=== PATIENT | male | born 2000 | race Two or more races ===

== ENCOUNTER 2022-06-29 17:04 | Emergency (ER) | payer OTHER ==
[2022-06-29 17:16] VITALS: BP 123/70
--- OUTSIDE RECORDS SUMMARY | 2022-06-29 17:24 | EXTERNAL MEDICAL SUMMARY RPT | Continuity of Care Document ---
:2000 Author Organization [facility] Address [address] [place] [address] Phone Care Team Providers Name Role Phone Unavailable Unavailable Unavailable Janak Casillas Pa-C Unavailable Unavailable Allergies No information. Encounters No information. Functional Status No information. Immunizations No information. Medications No information. Problems date description facility 2022-05-28 00:00 Unspecified viral infection All 2022-05-28 00:00 Viral disease All 2022-05-28 00:00 Viral infection, unspecified All Procedures date description facility 2022-05-28 00:00 Visit Code Hold All Results/Labs No information. Social History date description facility 2022-05-28 00:00 Unknown if ever smoked All 2022-05-29 00:00 Unknown if ever smoked All Vital Signs date measurement value units 2022-05-28 00:00 BMI 21.84 kg/m2 2022-05-28 00:00 BP_diastolic 66 mmHg 2022-05-28 00:00 BP_systolic 110 mmHg 2022-05-28 00:00 heart_rate 64 /min 2022-05-28 00:00 height_metric 180.34 cm 2022-05-28 00:00 height_standard 71 in 2022-05-28 00:00 respiration_rate 16 /min 2022-05-28 00:00 temperature_metric 36.17 C 2022-05-28 00:00 temperature_standard 97.1 F 2022-05-28 00:00 weight_metric 70.76 kg 2022-05-28 00:00 weight_standard 156 lb
--- NOTE | 2022-06-29 17:44 | ED Physician Documentation ---
PD HPI HEAD INJURY - Stated complaint Stated Complaint: HEAD LAC - Chief complaint Chief Complaint: Laceration - History obtained from History obtained from: Patient - Additional information Additional information: He scraped his forehead a few hours ago. He is up-to-date on tetanus. It was still bleeding. No head injury otherwise per se. No loss of consciousness or headache. PD PAST MEDICAL HISTORY - Past Surgical History Past Surgical History: No - Present Medications Home Medications: Ambulatory Orders Medication Instructions Recorded Confirmed Oxycodone HCl/Acetaminophen 1 - 2 each PO Q6H PRN #20 tablet 11/22/21 [Percocet 5-325 mg Tablet] Silver Sulfadiazine Cream 1 applic TOP BID #25 gm 11/22/21 [Silvadene Cream] - Allergies Allergies/Adverse Reactions: Allergies Allergy/AdvReac Type Severity Reaction Status Date / Time No Known Drug Allergies Allergy Verified 06/29/22 17:16 - Social History Does the pt smoke?: No Smoking Status: Never smoker Does the pt drink ETOH?: No Does the pt have substance abuse?: No - Immunizations Immunizations are current?: Yes - POLST Patient has POLST: No PD ED PE NORMAL - Vitals Vital signs reviewed: Yes - General General: Alert and oriented X 3, No acute distress - HEENT HEENT: PERRL, EOMI, Other (There is a 1 cm vertical very shallow laceration just above the medial side of the right eyebrow.) - Neuro Neuro: Alert and oriented X 3 Eye Opening: Spontaneous Motor: Obeys Commands Verbal: Oriented GCS Score: 15 Results - Vitals Vitals: Vital Signs - 24 hr 06/29/22 17:11 Temperature 36.6 C Heart Rate 75 Respiratory 18 Rate Blood Pressure 123/70 O2 Saturation 98 Oxygen O2 Source Room air Procedures - Laceration (location) Face Length in cm: 1 Wound type: Linear, Superficial Wound preparation: Irrigated copiously NS Skin layer closure: Dermabond Other: Tetanus UTD Departure - Departure Disposition: 01 Home, Self Care Clinical Impression: Facial laceration Condition: Good Record reviewed to determine appropriate education?: Yes Instructions: ED Laceration Facial Skin Glue
== END 2022-06-29 17:50 | disposition home or self-care (01) ==
LOC: ED 17:04
DX: S01.111A Laceration without foreign body of right eyelid and periocular area, initial encounter (principal); X58.XXXA Exposure to other specified factors, initial encounter
CPT/HCPCS: 12011; 99281

== ENCOUNTER 2022-08-08 20:44 | Emergency (ER) | payer OTHER ==
--- OUTSIDE RECORDS SUMMARY | 2022-08-08 21:42 | EXTERNAL MEDICAL SUMMARY RPT | Continuity of Care Document ---
:2000 Author Organization [facility] Address [address] [place] [address] Phone Care Team Providers Name Role Phone [...]
[2022-08-08 22:05] LABS: B. PARAPERTUSSIS- RESP PCR PAN NOT DETECTED; B. PERTUSSIS- RESP PCR PANEL NOT DETECTED; C. PNEUMONIAE- RESP PCR PANEL NOT DETECTED; CORONAVIRUS 229E-RESP PCR NOT DETECTED; CORONAVIRUS HKU1-RESP PCR NOT DETECTED; CORONAVIRUS NL63-RESP PCR NOT DETECTED; CORONAVIRUS OC43-RESP PCR NOT DETECTED; HUMAN METAPNEUMOVIRUS NOT DETECTED; INFLUENZA A- RESP PCR PANEL NOT DETECTED; INFLUENZA B - RESP PCR PANEL NOT DETECTED; M. PNEUMONIAE- RESP PCR PANEL NOT DETECTED; PARAINFLUENZA VIRUS 1 NOT DETECTED; PARAINFLUENZA VIRUS 2 NOT DETECTED; PARAINFLUENZA VIRUS 3 NOT DETECTED; PARAINFLUENZA VIRUS 4 NOT DETECTED; RHINOVIRUS/ENTEROVIRUS NOT DETECTED; RSV- RESP PCR PANEL NOT DETECTED; SARS-CoV-2 -RESP PCR PANEL DETECTED
--- NOTE | 2022-08-08 22:25 | ED Physician Documentation ---
History of Present Illness - Stated complaint Stated Complaint: FEVER/CERDA/BODY ACHES - Chief complaint Chief Complaint: Heent - History obtained from History obtained from: Patient - Additonal information Additional information: HPI from patient. Patient c/o generalized CERDA, nonproductive cough, generalized myalgias, mild dyspnea. Symptoms began 5-6 days ago, was evaluated at a walk-in clinic 3 days a go, had COVID test with negative result, and was prescribed 2 days of PO steroids which patient completed. He felt improvement until last night when symptoms worsened along with development of fevers and chills. Tmax at home was 104 , earlier this evening. Review of Systems Constitutional: reports: Fever, Chills, Myalgias, Fatigue Ears: denies: Ear pain Throat: denies: Sore throat Cardiac: denies: Chest pain / pressure Respiratory: reports: Dyspnea, Cough PD PAST MEDICAL HISTORY - Past Medical History Past Medical History: Yes Cardiovascular: None Respiratory: None Neuro: None Endocrine/Autoimmune: None GI: None : None HEENT: None Psych: ADD/ADHD Musculoskeletal: None Derm: None - Past Surgical History Past Surgical History: No - Present Medications Home Medications: Ambulatory Orders Medication Instructions Recorded Confirmed Methylphenidate HCl [Concerta] 36 mg PO DAILY 06/29/22 06/29/22 - Allergies Allergies/Adverse Reactions: Allergies Allergy/AdvReac Type Severity Reaction Status Date / Time No Known Drug Allergies Allergy Verified 08/08/22 20:58 - Social History Does the pt smoke?: No Smoking Status: Never smoker Does the pt drink ETOH?: No Does the pt have substance abuse?: No - Immunizations Immunizations are current?: Yes - POLST Patient has POLST: No PD ED PE NORMAL - Vitals Vital signs reviewed: Yes - General General: Alert and oriented X 3, No acute distress, Well developed/nourished - HEENT HEENT: Ears normal - Neck Neck: Supple, no meningeal sign - Respiratory Respiratory: No respiratory distress, Clear bilaterally Results - Vitals Vitals: Oxygen O2 Source Room air - Labs Labs: Laboratory Tests 08/08/22 21:00 Nasal Adenovirus (PCR) NOT DETECTED Nasal B. parapertussis DNA (PCR) NOT DETECTED Nasal Coronavir 229E PCR NOT DETECTED Nasal Coronavir HKU1 PCR NOT DETECTED Nasal Coronavir NL63 PCR NOT DETECTED Nasal Coronavir OC43 PCR NOT DETECTED Nasal Enterovir/Rhinovir PCR NOT DETECTED Nasal Influenza B PCR NOT DETECTED Nasal Influenza A PCR NOT DETECTED Nasal Parainfluen 1 PCR NOT DETECTED Nasal Parainfluen 2 PCR NOT DETECTED Nasal Parainfluen 3 PCR NOT DETECTED Nasal Parainfluen 4 PCR NOT DETECTED Nasal RSV (PCR) NOT DETECTED Nasal B.pertussis DNA PCR NOT DETECTED Nasal C.pneumoniae (PCR) NOT DETECTED Mela Human Metapneumo PCR NOT DETECTED Nasal M.pneumoniae (PCR) NOT DETECTED Nasal SARS-CoV-2 (PCR) DETECTED A PD Medical Decision Making - ED course Complexity details: reviewed results, considered differential, d/w patient ED course: Respiratory PCR panel is positive for COVID-19. Lungs are CTA, pulse ox 97-99% on room air , NAD on exam. Results d/w patient, return precautions reviewed. Per CDC guidelines, patient's ADD/ADHD diagnosis is a risk factor for progression to severe disease and thus he is provided Paxlovid kit. Departure - Departure Disposition: 01 Home, Self Care Clinical Impression: COVID-19 Condition: Good Instructions: ED Viral Syndrome Follow-Up: MELA Younger [Provider Group] Comments: You tested positive for COVID tonight. This would account for your fever and the symptoms you are describing. You have been provided with antiviral medication (Paxlovid); follow the instructions accompanying this kit regarding how to take this medication. Google "CDC isolation" and then click on the link to "Isolation and Precautions for People with COVID-19 - CDC". This will have useful information for you as well as household contacts. There is a calculator on the page that will determine when you can end isolation. Forms: Activity restrictions Discharge Date/Time: 08/08/22 22:58
[2022-08-08] MEDS ORDERED: NIRMATRELVIR/RITONAVIR PREPACK PO STA (22:49)
[2022-08-08 22:58] VITALS: BP 122/64
== END 2022-08-08 22:58 | disposition home or self-care (01) ==
LOC: ED 20:44
DX: U07.1 COVID-19 (principal); F90.9 Attention-deficit hyperactivity disorder, unspecified type
CPT/HCPCS: 87633; 99283; J3490

== ENCOUNTER 2022-12-18 11:07 | Emergency (ER) | payer OTHER ==
[2022-12-18 11:35] LABS: MUDS CUTOFF CONCENTRATIONS CUTOFF CONC BELOW:
[2022-12-18 11:48] LABS: AMPHETAMINE SCREEN,URINE NEGATIVE (NEGATIVE); BARBITURATE SCREEN,UR NEGATIVE (NEGATIVE); BENZODIAZEPINES SCREEN, URINE NEGATIVE (NEGATIVE); COCAINE SCREEN URINE NEGATIVE (NEGATIVE); METHADONE SCREEN, URINE NEGATIVE (NEGATIVE); METHAMPHETAMINES SCREEN, URINE NEGATIVE (NEGATIVE); OPIATE SCREEN, URINE NEGATIVE (NEGATIVE); OXYCODONE SCREEN, URINE NEGATIVE (NEGATIVE); PROPOXYPHENE SCREEN, URINE NEGATIVE (NEGATIVE); THC CANNABINOID SCREEN, URINE NEGATIVE (NEGATIVE); TRICYCLIC ANTIDEPRESSANT,URINE NEGATIVE (NEGATIVE)
[2022-12-18 11:58] LABS: BASOPHILS % (AUTO) 0.7 %; EOSINOPHILS # (AUTO) 0.2 10^3/uL (0.0-0.7); EOSINOPHILS % (AUTO) 2.7 %; HCT - HEMATOCRIT 41.5 % (42.0-52.0); HGB - HEMOGLOBIN 14.1 g/dL (14.0-18.0); LYMPHOCYTES # (AUTO) 1.1 10^3/uL (1.5-3.5); MEAN CORPUSCULAR HEMOGLOBIN 29.6 pg (27.0-31.0); MEAN CORPUSCULAR VOLUME 87.2 fL (80.0-94.0); MEAN PLATELET VOLUME 10.9 fL (7.4-11.4); MONOCYTES # (AUTO) 0.4 10^3/uL (0.0-1.0); MONOCYTES % (AUTO) 6.7 %; NEUTROPHILS # (AUTO) 3.9 10^3/uL (1.5-6.6); NEUTROPHILS % (AUTO) 70.7 %; PLT - PLATELET COUNT 240 10^3/uL (130-450); RED BLOOD COUNT 4.76 10^6/uL (4.70-6.10); RED CELL DISTRIBUTION WIDTH 12.2 % (12.0-15.0); WHITE BLOOD COUNT 5.5 x10^3/uL (4.8-10.8)
[2022-12-18 12:15] LABS: ALBUMIN 4.4 g/dL (3.2-5.5); ALKALINE PHOSPHATASE 59 IU/L (42-121); ALT ALANINE AMINOTRANSFERASE 37 IU/L (10-60); AST ASPARTATE AMINOTRANSFERASE 23 IU/L (10-42); BILIRUBIN,TOTAL 0.9 mg/dL (0.2-1.0); BUN - BLOOD UREA NITROGEN 14 mg/dL (6-20); CALCIUM 9.9 mg/dL (8.5-10.3); CARBON DIOXIDE - CO2 29 mmol/L (21-32); CHLORIDE 104 mmol/L (101-111); CREATININE 0.8 mg/dL (0.6-1.3); ETOH - ETHANOL < 10.0 mg/dL; GFR - MDRD 120 (>89); GLUCOSE 86 mg/dL (74-104); LIPASE 10 U/L (11-82); POTASSIUM 3.8 mmol/L (3.5-4.5); SODIUM 137 mmol/L (135-145); TOTAL PROTEIN 6.6 g/dL (6.4-8.9)
--- NOTE | 2022-12-18 14:34 | ED Physician Documentation ---
PD HPI MHE - Stated complaint Stated Complaint: SI - Chief complaint Chief Complaint: MHE - History obtained from History obtained from: Patient, EMS - Additional information Additional information: The patient comes to the emergency department chief complaint of suicidal ideation. He has a longstanding history of depression with multiple suicide attempts and regular alcohol abuse. He states that he has been having some domestic tensions over the last month which have increased his normal feeling of suicidality. He states that today, he was trying to find his card so he could drive to a secluded place and take all of his medications, but his saw what he was doing and called 911. Before the patient could leave, EMS and the police showed up. The patient was initially involuntary but ultimately agreed to come to the hospital voluntarily if he could come without being in handcuffs. Medics report he has been cooperative since. The patient states he has previously been on antidepressants but states he used them to try to overdose and did not think they helped him. [place] that he also was doing a daily Zoom Intensive outpatient therapy appointment, but states he just stopped doing it. He states he did feel it was helpful and he is not sure why he stopped doing it because he did want to complete the therapy, but he just could not bring himself to pay attention every day. The patient's primary doctor reports that the patient has multiple court appointments pending, secondary to aggressive behavior toward others and a desire to discharge from the . He states that this seems to been causing patient stress recently as well. The patient denies any physical symptoms. He denies actually taking any medication today or doing anything else to harm himself. He states that he does not really have any specific factors that stop him from committing suicide when he does decide not to try to kill himselfhe just decides not to for unknown reasons. The patient states his last drink was 2 days ago. He denies any tremors, vomiting, or hallucinations. He does not use any other drugs, he states. PD PAST MEDICAL HISTORY - Past Medical History Cardiovascular: None Respiratory: None Neuro: None Endocrine/Autoimmune: None GI: None : None HEENT: None Psych: ADD/ADHD Musculoskeletal: None Derm: None - Past Surgical History Past Surgical History: No - Present Medications Home Medications: Ambulatory Orders Medication Instructions Recorded Confirmed Methylphenidate HCl [Concerta] 36 mg PO DAILY 06/29/22 12/18/22 - Allergies Allergies/Adverse Reactions: Allergies Allergy/AdvReac Type Severity Reaction Status Date / Time No Known Drug Allergies Allergy Verified 08/08/22 20:58 - Social History Does the pt smoke?: No Smoking Status: Never smoker Does the pt drink ETOH?: No Does the pt have substance abuse?: No - Immunizations Immunizations are current?: Yes - POLST Patient has POLST: No PD ED PE NORMAL - Vitals Vital signs reviewed: Yes - General General: Alert and oriented X 3, No acute distress, Well developed/nourished - HEENT HEENT: Atraumatic, PERRL, EOMI, Moist mucous membranes - Neck Neck: Supple, no meningeal sign - Cardiac Cardiac: RRR, No murmur - Respiratory Respiratory: No respiratory distress, Clear bilaterally - Abdomen Abdomen: Soft, Non tender, Non distended - Derm Derm: Normal color, Warm and dry, No rash - Extremities Extremities: No deformity - Neuro Neuro: Alert and oriented X 3, ice guard inspector 2-12 intact, Normal speech - Psych Psych: Other (Somewhat flat affect. Patient does not make eye contact but does answer questions. He seems apathetic.) Results - Vitals Vitals: Vital Signs - 24 hr 12/18/22 11:28 Temperature 36.5 C Heart Rate 70 Respiratory 16 Rate Blood Pressure 119/70 O2 Saturation 99 Oxygen O2 Source Room air - Labs Labs: Laboratory Tests 12/18/22 12/18/22 12/18/22 11:22 11:29 11:29 WBC 5.5 RBC 4.76 Hgb 14.1 Hct 41.5 L MCV 87.2 MCH 29.6 MCHC 34.0 RDW 12.2 Plt Count 240 MPV 10.9 Neut # (Auto) 3.9 Lymph # (Auto) 1.1 L [place]cho # (Auto) 0.4 Eos # (Auto) 0.2 Baso # (Auto) 0.0 Absolute Nucleated RBC 0.00 Nucleated RBC % 0.0 Sodium 137 Potassium 3.8 Chloride 104 Carbon Dioxide 29 Anion Gap 4.0 L BUN 14 Creatinine 0.8 Estimated GFR (MDRD) 120 Glucose 86 Calcium 9.9 Total Bilirubin 0.9 AST 23 ALT 37 Alkaline Phosphatase 59 Total Protein 6.6 Albumin 4.4 Globulin 2.2 Albumin/Globulin Ratio 2.0 Lipase 10 L Urine Opiates Screen NEGATIVE Ur Oxycodone Screen NEGATIVE Urine Methadone Screen NEGATIVE Ur Propoxyphene Screen NEGATIVE Ur Barbiturates Screen NEGATIVE Ur Tricyclics Screen NEGATIVE Ur Phencyclidine Scrn NEGATIVE Ur Amphetamine Screen NEGATIVE U Methamphetamines Scrn NEGATIVE U Benzodiazepines Scrn NEGATIVE Urine Cocaine Screen NEGATIVE U Cannabinoids Screen NEGATIVE Ethyl Alcohol < 10.0 PD Medical Decision Making - ED course Complexity details: reviewed results, re-evaluated patient, considered differential, d/w patient ED course: The patient was medically cleared at 1330 and social work did evaluate. The likely plan will be for this patient to have inpatient treatment, hopefully at [facility]. The patient will be signed out to the [facility] emergency physician, pending final disposition. Departure - Departure Clinical Impression: Suicidal ideation Depression Qualifiers: Depression Type: unspecified Qualified Code(s): F32.A - Depression, unspecified Condition: Stable
[2022-12-18 17:53] LABS: BILIRUBIN,URINE NEGATIVE (NEGATIVE); GLUCOSE, URINE (UA) NEGATIVE (NEGATIVE); KETONES,URINE (UA) NEGATIVE (NEGATIVE); LEUKOCYTE ESTERASE, URINE NEGATIVE (NEGATIVE); NITRITE,URINE NEGATIVE (NEGATIVE); OCCULT BLOOD,URINE NEGATIVE (NEGATIVE); PROTEIN,URINE NEGATIVE (NEGATIVE); UROBILINOGEN,URINE 0.2 (NORMAL) E.U./dL (NORMAL)
[2022-12-18 17:56] LABS: CLARITY,URINE CLEAR (CLEAR)
[2022-12-18 19:04] VITALS: O2SAT 100
--- NOTE | 2022-12-18 19:14 | ED Physician Documentation ---
ED Addendum - Addendum Addendum: 12/18/22 19:13 DCR had seen him but at that point he became voluntary again and was willing to accept help. He was excepted to [facility] at this time by Dr. Naylor and cobras are completed. He is stable for transport. Disposition: Transfer to psychiatric facility Condition: Stable
[2022-12-18 22:32] VITALS: BP 109/67
== END 2022-12-18 22:24 ==
LOC: EDUNIT# → ED 11:07
DX: R45.851 Suicidal ideations (principal); F32.A Depression, unspecified; Z20.822 Contact with and (suspected) exposure to COVID-19
CPT/HCPCS: 36415; 80053; 80306; 80320; 81001; 81003; 83690; 85025; 87086; 99284; 99285

== ENCOUNTER 2023-04-25 22:02 | Emergency (ER) | payer OTHER ==
--- NOTE | 2023-04-25 23:31 | ED Physician Documentation ---
History of Present Illness - Stated complaint Stated Complaint: FEVER,N/V,CERDA - Chief complaint Chief Complaint: General - History obtained from History obtained from: Patient - Additonal information Additional information: HPI from patient. Patient complains of nausea and vomiting that started this morning, generalized headache, generalized myalgias. He was seen in a clinic earlier today for the symptoms. He reports that he had a swab that was negative for the viruses that were tested (COVID, influenza, RSV). He says he was given a dose of Zofran which helped with his nausea and vomiting. He says he was prescribed more Zofran, but has not picked up the prescription. He presents this time due to ongoing nausea but not vomiting. He also is complaining of ongoing generalized headache, generalized myalgias. He has not taken any medications, including [id number] medication, for his symptoms. He is unsure if he has been having fevers; he says he was told he had a fever when he was evaluated at the clinic, but does not know what the exact temperature was. He is up-to-date on immunizations. Review of Systems Constitutional: reports: Myalgias, Fatigue Respiratory: denies: Dyspnea, Cough GI: reports: Nausea, Vomiting, Diarrhea. denies: Abdominal Pain Neurologic: reports: Generalized weakness, Headache PD PAST MEDICAL HISTORY - Past Medical History Past Medical History: Yes Cardiovascular: None Respiratory: None Neuro: None Endocrine/Autoimmune: None GI: None : None HEENT: None Psych: ADD/ADHD Musculoskeletal: None Derm: None - Past Surgical History Past Surgical History: No - Present Medications Home Medications: Ambulatory Orders Medication Instructions Recorded Confirmed Methylphenidate HCl [Concerta] 36 mg PO DAILY 06/29/22 04/26/23 Fluoxetine HCl [Prozac] 20 mg PO 04/26/23 ONDANSETRON ODT Prepack 2 [ZOFRAN 4 mg SL Q6HR PRN 04/26/23 04/26/23 ODT] hydrOXYzine pamoate [Hydroxyzine 25 mg PO 04/26/23 Pamoate] - Allergies Allergies/Adverse Reactions: Allergies Allergy/AdvReac Type Severity Reaction Status Date / Time No Known Drug Allergies Allergy Verified 04/25/23 22:05 - Social History Does the pt smoke?: No Smoking Status: Never smoker Does the pt drink ETOH?: No Does the pt have substance abuse?: No - Immunizations Immunizations are current?: Yes - POLST Patient has POLST: No PD ED PE NORMAL - Vitals Vital signs reviewed: Yes - General General: Alert and oriented X 3, No acute distress, Well developed/nourished, Other (drowsy but awakens to voice) - HEENT HEENT: PERRL, EOMI, Moist mucous membranes - Neck Neck: Supple, no meningeal sign - Cardiac Cardiac: RRR, No murmur - Respiratory Respiratory: No respiratory distress, Clear bilaterally - Abdomen Abdomen: Normal bowel sounds, Soft, Non tender, Non distended - Neuro Neuro: Alert and oriented X 3 Eye Opening: To Voice Motor: Obeys Commands Verbal: Oriented GCS Score: 14 Results - Vitals Vitals: Oxygen O2 Source Room air - Labs Labs: Laboratory Tests 04/26/23 04/26/23 00:00 00:03 Urine Color YELLOW Urine Clarity CLEAR Urine pH 6.0 Ur Specific [place] 1.020 Urine Protein NEGATIVE Urine Glucose (UA) NEGATIVE Urine Ketones NEGATIVE Urine Occult Blood NEGATIVE Urine Nitrite NEGATIVE Urine Bilirubin NEGATIVE Urine Urobilinogen 0.2 (NORMAL) Ur Leukocyte Esterase NEGATIVE Urine RBC None Seen Urine WBC 0-3 Ur Squamous Epith Cells NONE SEEN Urine Bacteria None Seen Urine Culture Comments NOT INDICATED Nasal Adenovirus (PCR) NOT DETECTED Nasal B. parapertussis DNA (PCR) NOT DETECTED Nasal Coronavir 229E PCR NOT DETECTED Nasal Coronavir HKU1 PCR NOT DETECTED Nasal Coronavir NL63 PCR NOT DETECTED Nasal Coronavir OC43 PCR NOT DETECTED Nasal Enterovir/Rhinovir PCR NOT DETECTED Nasal Influenza B PCR NOT DETECTED Nasal Influenza A PCR NOT DETECTED Nasal Parainfluen 1 PCR NOT DETECTED Nasal Parainfluen 2 PCR NOT DETECTED Nasal Parainfluen 3 PCR NOT DETECTED Nasal Parainfluen 4 PCR NOT DETECTED Nasal RSV (PCR) NOT DETECTED Nasal B.pertussis DNA PCR NOT DETECTED Nasal C.pneumoniae (PCR) NOT DETECTED Mela Human Metapneumo PCR NOT DETECTED Nasal M.pneumoniae (PCR) NOT DETECTED Nasal SARS-CoV-2 (PCR) NOT DETECTED PD Medical Decision Making - ED course Complexity details: reviewed results, re-evaluated patient, considered differential, d/w patient ED course: Respiratory PCR panel is negative for the viruses tested on this panel. Urinaly sis is without concerning/remarkable result (including normal SG). He is afebrile, appears adequately hydrated on exam (moist mucous membranes), and no concerning findings on the remainder of the exam (specifically, benign abdominal exam). Patient is given 4 mg TL Zofran as well as 600 milligrams of ibuprofen for his headache. On reevaluation, he is reporting improvement in his symptoms. Is able to ambulate without assistance. He is provided a take-home pack of ondansetron. He is instructed to pick and shovel man the previously prescribed Zofran when the pharmacy is next open. Return precautions are reviewed. Departure - Departure Disposition: 01 Home, Self Care Clinical Impression: Viral syndrome Condition: Good Instructions: ED Viral Syndrome Follow-Up: MELA Younger [Provider Group] Comments: The nasal swab was negative for the panel of viruses that we test for on this panel; this includes COVID, influenza, RSV, para influenza viruses, rhinovirus, and several others. Despite this result, I still suspect a virus is the cause of your symptoms. You are not having any symptoms nor findings on the physical exam to suggest a bacterial infection, or other emergent process. Follow-up with your primary care provider in 1 to 2 days if the symptoms do not resolve. Return if your symptoms worsen in any way, or if you develop new/concerning signs/symptoms (such as fever, difficulty breathing, cough, blood in the stool or vomit, abdominal pain). Discharge Date/Time: 04/26/23 02:09
[2023-04-25] MEDS ORDERED: IBUPROFEN 600 MG TABLET PO STA (23:47)
[2023-04-25] MEDS ORDERED: ONDANSETRON ODT 4 MG TABLET TL STA (23:47)
[2023-04-26 00:17] LABS: BILIRUBIN,URINE NEGATIVE (NEGATIVE); GLUCOSE, URINE (UA) NEGATIVE (NEGATIVE); KETONES,URINE (UA) NEGATIVE (NEGATIVE); LEUKOCYTE ESTERASE, URINE NEGATIVE (NEGATIVE); NITRITE,URINE NEGATIVE (NEGATIVE); OCCULT BLOOD,URINE NEGATIVE (NEGATIVE); PROTEIN,URINE NEGATIVE (NEGATIVE); UROBILINOGEN,URINE 0.2 (NORMAL) E.U./dL (NORMAL)
[2023-04-26 00:23] LABS: CLARITY,URINE CLEAR (CLEAR)
[2023-04-26 00:24] LABS: BACTERIA,URINE None Seen /HPF (None Seen); RBC,URINE None Seen /HPF (0-5); SQUAMOUS EPITHELIAL CELL,UR NONE SEEN (<= Few); WBC,URINE 0-3 /HPF (0-3)
[2023-04-26 00:57] LABS: B. PARAPERTUSSIS- RESP PCR PAN NOT DETECTED; B. PERTUSSIS- RESP PCR PANEL NOT DETECTED; C. PNEUMONIAE- RESP PCR PANEL NOT DETECTED; CORONAVIRUS 229E-RESP PCR NOT DETECTED; CORONAVIRUS HKU1-RESP PCR NOT DETECTED; CORONAVIRUS NL63-RESP PCR NOT DETECTED; CORONAVIRUS OC43-RESP PCR NOT DETECTED; HUMAN METAPNEUMOVIRUS NOT DETECTED; INFLUENZA A- RESP PCR PANEL NOT DETECTED; INFLUENZA B - RESP PCR PANEL NOT DETECTED; M. PNEUMONIAE- RESP PCR PANEL NOT DETECTED; PARAINFLUENZA VIRUS 1 NOT DETECTED; PARAINFLUENZA VIRUS 2 NOT DETECTED; PARAINFLUENZA VIRUS 3 NOT DETECTED; PARAINFLUENZA VIRUS 4 NOT DETECTED; RHINOVIRUS/ENTEROVIRUS NOT DETECTED; RSV- RESP PCR PANEL NOT DETECTED; SARS-CoV-2 -RESP PCR PANEL NOT DETECTED
[2023-04-26] MEDS ORDERED: ONDANSETRON ODT 4 MG Prepack 2 TL PRN (01:52)
[2023-04-26 02:13] VITALS: BP 123/56; O2SAT 98
== END 2023-04-26 02:09 | disposition home or self-care (01) ==
LOC: ED 22:02
DX: B34.9 Viral infection, unspecified (principal)
CPT/HCPCS: 81001; 87633; 99283; A9270; Q0162; 87086